=== PATIENT | female | born 1990 | race Caucasian/White ===

== ENCOUNTER 2019-03-05 18:37 | Day surgery (SDC) | payer OTHER ==
[2019-03-05 19:14] VITALS: BP 128/62; TEMP 98.2; BMI 44.6
--- NOTE | 2019-03-05 19:34 | PDOC.FPROB ---
FMR OB H&P: HPI - History of Present Illness Chief Complaint: contractions, LOF History of Present Illness: 28 yo at 37.5 by LMP/9w sono here with cc of ctx and leakage of fluid since approx 4pm this afternoon. She notes she has been having irregular contractions the last few days in addition to brown-mucus discharge. This afternoon, contractions became more frequent (q4-6 minutes) and when they got up to get in the care she noted some leakage of fluid. Endorses regular movement. Denies vaginal bleeding, dysuria, hematuria. Primary Care Physician: Judith Alicea MD FMR OB H&P: Current - Care : 2 Para: 1 Gestational age: 37.5 Due date: 03/21/2019 Dating Criteria: LMP/1T sono Course/Complications: None per patient, concern for LGA - OB Labs Blood type: A RH: positive Antibody Screen: negative HIV: negative RPR: negative HepBsAg: negative Rubella: immune Urine drug screen: negative 1 hour gtt: 108 GBS: negative Additional labs: Panorama low risk FMR OB H&P: History - Past Medical History PMH: Hypothyroidism - OB History OB History: (2016) F - no complications per patient (elective IOL) - Surgical History Sx History: Denies - Social History Social History: Denies tobacco, alcohol, drug use - Family History Family History: Denies DM, HTN, complications, cancers FMR OB H&P: Medications - Current Home Medications: Medication Instructions Recorded Confirmed Type Levothyroxine Sodium 75 mcg PO DAILY 09/13/15 03/05/19 History Pnv No.95/Ferrous Fum/Folic AC 1 tablet PO DAILY 09/13/15 03/05/19 History [ Tablet] Allergies/Adverse Reactions: Allergies Allergy/AdvReac Type Severity Reaction Status Date / Time No Known Allergies Allergy Verified 03/05/19 19:14 FMR OB H&P: ROS - Review of Systems General: reports: fatigue. denies: fever/chills, weight/appetite/sleep changes Eyes: denies: eye pain, vision changes ENT: denies: nasal congestion, rhinorrhea Cardiovascular: denies: chest pain, palpitation Respiratory: denies: cough, congestion Gastrointestinal: reports: abdominal pain, diarrhea. denies: nausea, vomiting Genitourinary (Female): reports: polyuria. denies: dysuria, hematuria Musculoskeletal: denies: tenderness, swelling Integumentary: denies: rash, lesions FMR OB H&P: Vital Signs - Maternal Vital signs: Vital Signs - First Documented Temp Pulse Resp BP Pulse Ox 98.2 F 97 16 128/62 100 03/05/19 19:08 03/05/19 19:08 03/05/19 19:08 03/05/19 19:08 03/05/19 19:08 - Heart Tones Baseline: 140 Variability: moderate Acceleration: absent Deceleration: absent FMR OB H&P: Physical Exam - Physical Exam General: NAD, awake, alert and oriented HEENT: normocephalic and atraumatic, MMM Neck: supple, trachea midline Chest: non-tender to palpation Breast: symmetric, non-tender Heart: RRR, normal S1/S2 General: CTAB, no respiratory distress Abdomen: soft, gravid, non-tender Musculoskeletal: normal gait and station, pulses present Skin: no rash, good tugor Psychiatric: intact recent and remote memory, good judgement and insight - Pelvic Exam Vulva: normal hair distribution Cervix: no masses, no lesions, no blood SVE: 350/-2 Membranes: vertex FMR OB H&P: A/P - Problem List (1) Term Current Visit: Yes Status: Acute Code(s): Z34.90 - ENCNTR FOR SUPRVSN OF NORMAL , UNSP, UNSP TRIMESTER Disposition: 28 yo at 37.5w here with abdominal pain and LOF 1. Leakage of Fluid/Ctx - Likely latent labor - Amnisure negative, SVE negative for pooling/Valsalva - SVE unchanged from office visit - FHT reassuring - Will encourage to walk and recheck 2 hours after last check 2. Hypothyroidism - Continue current regimen Discussion: Date/Time: 03/05/191931 This H&P was discussed with Dr. Beverly who agrees with the above documentation and plan.
[2019-03-05 19:45] LABS: Amnisure Internal Control QC ACCEPTABLE (ACCEPTABLE); Amnisure Test No Membranes Rupture (No Rupture)
--- NOTE | 2019-03-05 23:12 | PDOC.EVN ---
Event Note - Event Note Event Note: NST reactive. Ctx have spaced out and cervix has remained unchanged since 1909. Will plan to d/c home with return precautions.
== END 2019-03-05 23:30 | disposition home or self-care (01) ==
LOC: L&D/OP 18:37
PROVIDERS: ATTEND Student in an Organized Health Care Education/Training Program
DX: O47.1 False labor at or after 37 completed weeks of gestation (principal); O99.89 Other specified diseases and conditions complicating pregnancy, childbirth and the puerperium; N89.8 Other specified noninflammatory disorders of vagina; O99.283 Endocrine, nutritional and metabolic diseases complicating pregnancy, third trimester; E03.9 Hypothyroidism, unspecified; Z3A.37 37 weeks gestation of pregnancy; Z79.899 Other long term (current) drug therapy
CPT/HCPCS: 84112; 87480; 87510; 87660; 96360; 96361; 99285

== ENCOUNTER 2019-03-06 23:38 | Inpatient (IN) | payer OTHER ==
[2019-03-07 00:15] VITALS: BMI 44.6
[2019-03-07 00:42] LABS: Amnisure Test RUPTURE DETECTED (No Rupture)
[2019-03-07 00:44] LABS: Amnisure Internal Control QC ACCEPTABLE (ACCEPTABLE)
[2019-03-07] MEDS ORDERED: Promethazine HCl 25 MG/ML VIAL IM PRN ×2 (01:07→08:32)
[2019-03-07] MEDS ORDERED: Ondansetron PF 4 MG/2 ML Vial IVP PRN ×3 (01:07→16:54)
[2019-03-07] MEDS ORDERED: NS w/ Oxytocin 10 units 500 ML IV SCH ×2 (01:15)
[2019-03-07] MEDS ORDERED: NS / Oxytocin 40 units/1000ml 1,000 ML IV SCH ×2 (01:15→16:54)
[2019-03-07] MEDS ORDERED: Lidocaine 1% (PF) 30 ML VIAL SC PRN (01:15)
[2019-03-07] MEDS: Lactated Ringer's 1,000 ML IV SCH ×3 (01:30→12:57)
[2019-03-07 01:43] LABS: Hemoglobin 11.7 g/dL (12.0-16.0); Mean Corpuscular HGB CONC 33.5 g/dL (32.0-36.0); Mean Corpuscular Hemoglobin 29.7 pg (27.0-31.0); Mean Corpuscular Volume 88.8 fL (78.0-98.0); Mean Platelet Volume 7.6 fL (7.4-10.4); Platelet Count 264 thou/uL (130-400); RBC Distribution Width 12.7 % (11.5-14.5); Red Blood Cell (RBC) Count 3.93 mill/uL (4.20-5.40); White Blood Cell (WBC) Count 9.2 thou/uL (4.8-10.8)
[2019-03-07 02:24] LABS: HBSAg Index 0.27 S/CO (0-0.99); Hep B Surf Ag Non-Reactive S/CO (NonReactive)
[2019-03-07 03:39] LABS: Syphilis Antibody Nonreactive (Nonreactive); Syphilis Antibody Index 0.04 S/CO (<1.00 Non-Reactive)
[2019-03-07] MEDS ORDERED: Fentanyl 4 mcg/Bup 0.1% Cadd 100 ML ONE (07:19)
[2019-03-07] MEDS ORDERED: Lidocaine 1.5%/Epinephrine 1:200,000 5 ML AMPUL IJ ONE (07:54)
--- NOTE | 2019-03-07 08:18 | PDOC.LDHP ---
Labor and Delivery H&P Chief complaint: loss of fluid HPI: 28yo at 38w0d by LMP here for SROM at 2215 clear and contractions. No VB. Painful contractions Current gestational age (weeks): 38 Due date: 03/21/19 Dating criteria: last menstrual period Grav: 2 Para: 1 Current complications: none Abnormal US findings: No Past Medical History: hypothyroid Current medications: pre-laurie vitamins, other (levothyroxine 50mcg) Previous surgical history: other (tonsils) Allergies/Adverse Reactions: Allergies Allergy/AdvReac Type Severity Reaction Status Date / Time No Known Allergies Allergy Verified 03/07/19 00:16 Social history: none - Physical Exam Vital signs reviewed and normal: yes General: NAD Heart: RRR Lungs: CTAB Abdomen: gravid Extremeties: no edema FHT: category 1 Gosnell contractions every: 3min - OB Labs Blood type: A RH: positive Antibody Screen: negative HIV: negative RPR: negative HEPSAg: negative 1 hour GCT: negative GBS: negative Urine drug screen: negative Rubella: immune - Assessment L&D Assessment: term rupture in membranes - Plan Plan: admit to L&D, labor augmentation if indicated, informed consent obtained, anesthesia consult for pain management
[2019-03-07] MEDS ORDERED: ePHEDrine/0.9% NaCl/PF SYRINGE 50 mg/10 ml SLOW IVP PRN (08:32)
[2019-03-07] MEDS ORDERED: diphenhydrAMINE 50 MG/ML VIAL IVP PRN (08:32)
[2019-03-07] MEDS ORDERED: Acetaminophen 325 MG TAB PO PRN (08:32)
[2019-03-07] MEDS ORDERED: Naloxone HCl 0.4 mg/ml Vial IVP PRN ×2 (08:32)
[2019-03-07] MEDS ORDERED: Lactated Ringer's 500 ML IV PRN (08:32)
[2019-03-07] MEDS ORDERED: Fentanyl 4 mcg/Bupivacaine 0.1% Cassette 100 ML EPIDURAL SCH (08:45)
[2019-03-07] MEDS ORDERED: Communication Order-Pharmacy FS SCH (08:45)
[2019-03-07 14:43] LABS: Actual Bicarbonate (HCO3a) 25.8 mEq/L (22-28); Analyzer IN Cardio OR; Base Excess (BEa) -2.9 mEq/L (-2.0 to +3.0)
--- NOTE | 2019-03-07 14:49 | PDOC.OPDEL ---
OB Operative/Delivery Note Delivery Dr/Surgeon: Deanen Assist: n/a Pre-Delivery Diagnosis: ruptured membrane Procedure/Post Delivery Dx: operative vaginal delivery (VE) Weeks gestation: 38 Anesthesia: epidural - Findings A Sex: male - Additional Findings/Plan Placenta delivered: spontaneous Repaired Obstetrical Laceration: 1st degree Estimated blood loss: 200 Compilations/Other Findings: NRFHT, deep variables to 60s, recovering to 80s x 3 min, VE applied and infant extracted in 1 pull. NC x 1 reduced. Anterior shoulder delivered with [facility]. to warmer where oliver was waiting. Post delivery plan: routine recovery
[2019-03-07] MEDS ORDERED: hydrALAZINE 20 MG/ML VIAL SLOW IVP PRN (16:54)
[2019-03-07] MEDS ORDERED: diphenhydrAMINE 25 MG CAP PO PRN (16:54)
[2019-03-07] MEDS ORDERED: Milk Of Magnesia 30 ML UDCUP PO PRN (16:54)
[2019-03-07] MEDS ORDERED: Lanolin Ointment 7 GM TUBE TOP PRN (16:54)
[2019-03-07] MEDS ORDERED: HYDROcodone/Acetaminophen 5/325 mg Tablet PO PRN (16:54)
[2019-03-07] MEDS ORDERED: Adacel (T-DAP) 0.5 ML SYRINGE IM ONE (16:54)
[2019-03-07] MEDS ORDERED: Bisacodyl 10 MG SUPP PR PRN (16:54)
[2019-03-07] MEDS ORDERED: Benzocaine-Menthol 82.5 ML CAN TOP PRN (16:54)
[2019-03-07] MEDS ORDERED: Preparation H Ointment 28 GM TUBE PR PRN (16:54)
[2019-03-07] MEDS ORDERED: Bupivacaine/Epinephrine 0.25% 30 ML VIAL ONE (18:00)
[2019-03-07] MEDS ORDERED: Lidocaine 2% MPF 10 ML AMP (For Epidural Use) ONE (18:00)
[2019-03-07] MEDS: Ferrous Sulfate 325 MG TAB PO SCH (18:35)
[2019-03-07] MEDS: Docusate Calcium (SURFAK) 240 MG CAP PO SCH (19:59)
[2019-03-07] MEDS: Ibuprofen 800 MG TAB PO SCH (19:59)
[2019-03-07] MEDS: HYDROcodone/Acetaminophen 5/325 mg Tablet PO PRN (20:02)
[2019-03-08] MEDS: HYDROcodone/Acetaminophen 5/325 mg Tablet PO PRN (00:36)
[2019-03-08] MEDS ORDERED: Zolpidem Tartrate 5 MG TAB PO PRN (00:50)
--- NOTE | 2019-03-08 00:51 | PDOC.EVN ---
Event Note - Event Note Event Note: called by nursing staff. pt requesting medication to help her sleep. Ambien 5mg ordered.
[2019-03-08] MEDS: Ibuprofen 800 MG TAB PO SCH ×2 (04:01→13:16)
[2019-03-08 08:16] VITALS: BP 103/56; TEMP 98.3
--- NOTE | 2019-03-08 08:19 | PDOC.PP ---
Post Progress Note Post Day #: 1 PO intake tolerated: yes Flatus: yes Ambulation: yes Vital Signs (12 hours) Temp Pulse Resp BP Pulse Ox 03/08/19 08:15 98.3 F 64 20 103/56 L 98 03/08/19 04:00 98.1 F 67 16 102/51 L 03/07/19 23:42 98.7 F 86 16 124/73 Weight Weight 260 lb - Physical Examination General: NAD Cardiovascular: RRR Respiratory: non-labored breathing Abdominal: no distention, appropriately TTP Fundus firm & at: umb Neurological: no gross focal deficits Psychiatric: normal affect Result Diagrams: 03/07/19 01:28 Additional Labs: Post Labs Blood Type A POSITIVE 03/07/19 01:28 Hep Bs Antigen Non-Reactive S/CO (NonReactive) 03/07/19 01:28 - Assessment/Plan PPD1 s/p VAVD VSSAF Doing well lochia appropriate pain controlled Rh pos RImm DC home FU 6w
[2019-03-08] MEDS: Ferrous Sulfate 325 MG TAB PO SCH (09:27)
[2019-03-08] MEDS: Prenatal Vitamin 1 TAB PO SCH (09:28)
[2019-03-08] MEDS: Docusate Calcium (SURFAK) 240 MG CAP PO SCH (09:28)
== END 2019-03-08 17:00 | disposition home or self-care (01) | DRG 807 ==
LOC: L&D/OP 23:38 → L&D 03-07 01:01 → 3SW 03-07 16:39
PROVIDERS: ADMIT Student in an Organized Health Care Education/Training Program; ATTEND Student in an Organized Health Care Education/Training Program
PROC: 10D07Z6 Extraction of Products of Conception, Vacuum, Via Natural or Artificial Opening (ICD-10-PCS; principal; 2019-03-07)
PROC: 0HQ9XZZ Repair Perineum Skin, External Approach (ICD-10-PCS; 2019-03-07)
DX: O99.284 Endocrine, nutritional and metabolic diseases complicating childbirth (principal); Z37.0 Single live birth; E03.9 Hypothyroidism, unspecified; O70.0 First degree perineal laceration during delivery; Z3A.38 38 weeks gestation of pregnancy; Z79.899 Other long term (current) drug therapy
CPT/HCPCS: 82805; 84112; 85027; 86780; 86850; 86900; 86901; 87340; J2001; J2590; J3490